=== PATIENT | male | born 1985 | race Caucasian/White ===

== ENCOUNTER 2021-09-13 10:43 | Emergency (ER) | payer OTHER ==
[2021-09-13] MEDS ORDERED: CYCLOBENZAPRINE10 MG PO (12:23)
== END 2021-09-13 13:00 | disposition home or self-care (01) ==
LOC: ER1 10:43
DX: S16.1XXA Strain of muscle, fascia and tendon at neck level, initial encounter (principal); S46.911A Strain of unspecified muscle, fascia and tendon at shoulder and upper arm level, right arm, initial encounter; V43.52XA Car driver injured in collision with other type car in traffic accident, initial encounter; Y92.410 Unspecified street and highway as the place of occurrence of the external cause
CPT/HCPCS: 72125; 96372; 99283; J1885